=== PATIENT | male | born 1955 | race Caucasian/White ===

== ENCOUNTER 2021-12-31 18:04 | Outpatient (CLI) | payer OTHER, MEDICARE ==
--- NOTE | 2021-12-31 19:43 | XRAY Report ---
PROCEDURE: Chest 2 View X-Ray INDICATIONS: ACUTE COUGH TECHNIQUE: 2 views of the chest were acquired. COMPARISON: None. FINDINGS: Surgical changes and devices: None. Lungs and pleura: No pleural effusions or pneumothorax. Lungs are clear. Mediastinum: Mediastinal contours are normal. Heart size is normal. Bones and chest wall: No suspicious bony abnormalities. Soft tissues appear unremarkable. Air-fill ed loops of large bowel are seen in the upper abdomen. IMPRESSION: No acute cardiopulmonary abnormality. Reviewed by: Shaun Redmond MD on 12/31/2021 7:41 PM PST Approved by: Shaun Redmond MD on 12/31/2021 7:41 PM PST Station ID: [id number]
== END 2021-12-31 18:05 | disposition home or self-care (01) ==
LOC: DI.S 18:04
PROVIDERS: ATTEND Physician Assistant
DX: R05.1 Acute cough (principal)

== ENCOUNTER 2022-01-01 10:53 | Emergency (ER) | payer MEDICARE, OTHER ==
--- OUTSIDE RECORDS SUMMARY | 2022-01-01 11:23 | EXTERNAL MEDICAL SUMMARY RPT | Continuity of Care Document ---
:1955 Author Organization [place] Address [address] [id number] Phone Care Team Providers Name Role Phone Unavailable Unavailable Unavailable Shira Donahue, Bryan Unavailable Unavailable Giovani Donahue, Cherrie Unavailable Unavailable Allergies and Intolerances date description facility type (no date) IODINE [facility]unknown) Services Jhonny Encounters No information. Functional Status No information. Immunizations No information. Medications date description facility [id number]+0000 fluticasone propionate [facility] [place] [id number]+0000 fluticasone propionate [facility] [place] [phone]+0000 levothyroxine [facility] [place] [phone]+0000 levothyroxine [facility] [place] [phone]+0000 levothyroxine [facility] [place] [phone]+0000 levothyroxine [facility] [place] [phone]+0000 prednisone [facility] [place] [phone]+0000 prednisone [facility] [place] [phone]+0000 prednisone [facility] [place] [phone]+0000 amoxicillin-pot clavulanate [facility] [place] [phone]+0000 amoxicillin-pot clavulanate [facility] [place] [id number]+0000 cetirizine [facility] [place] [id number]+0000 cetirizine [facility] [place] [phone]+0000 cetirizine [facility] [place] [phone]+0000 cetirizine [facility] [place] [phone]+0000 levothyroxine [facility] [place] [id number]+0000 levothyroxine [facility] [place] [phone]+0000 levothyroxine [facility] [place] [phone]+0000 levothyroxine [facility] [place] [phone]+0000 prednisone [facility] [place] [phone]+0000 prednisone [facility] [place] [phone]+0000 prednisone [facility] [place] [id number]+0000 fluticasone propionate [facility] [place] [phone]+0000 fluticasone propionate [facility] [place] [phone]+0000 fluticasone propionate [facility] [place] [phone]+0000 fluticasone propionate [facility] [place] [phone]+0000 benzonatate [facility] [place] [phone]+0000 prednisone [facility] [place] [phone]+0000 prednisone [facility] [place] [phone]+0000 montelukast [facility] [place] [phone]+0000 montelukast [facility] [place] [phone]+0000 montelukast [facility] [place] [phone]+0000 montelukast [facility] [place] [phone]+0000 prednisone [facility] [place] [phone]+0000 prednisone [facility] [place] [phone]+0000 prednisone [facility] [place] [phone]+0000 cetirizine [facility] [place] [phone]+0000 cetirizine [facility] [place] [phone]+0000 cetirizine [facility] [place] [phone]+0000 cetirizine [facility] [place] [phone]+0000 benzonatate [facility] [place] [phone]+0000 levothyroxine [facility] [place] [phone]+0000 levothyroxine [facility] [place] [phone]+0000 levothyroxine [facility] [place] [phone]+0000 levothyroxine [facility] [place] [phone]+0000 prednisone [facility] [place] [phone]+0000 cetirizine [facility] [place] [phone]+0000 cetirizine [facility] [place] [phone]+0000 cetirizine [facility] [place] [phone]+0000 cetirizine [facility] [place] [phone]+0000 fluticasone propionate [facility] [place] [phone]+0000 fluticasone propionate [facility] [place] [phone]+0000 benzonatate [facility] [place] [phone]+0000 montelukast [facility] [place] [phone]+0000 montelukast [facility] [place] [phone]+0000 montelukast [facility] [place] [phone]+0000 montelukast [facility] [place] [phone]+0000 montelukast [facility] [place] [phone]+0000 montelukast [facility] [place] [phone]+0000 montelukast [facility] [place] [phone]+0000 montelukast [facility] [place] [phone]+0000 amoxicillin-pot clavulanate [facility] [place] [phone]+0000 cetirizine [facility] [place] [phone]+0000 cetirizine [facility] [place] [phone]+0000 cetirizine [facility] [place] [phone]+0000 cetirizine [facility] [place] [phone]+0000 montelukast [facility] [place] [phone]+0000 montelukast [facility] [place] [phone]+0000 montelukast [facility] [place] [phone]+0000 montelukast [facility] [place] [phone]+0000 benzonatate [facility] [place] [phone]+0000 amoxicillin-pot clavulanate [facility] [place] [phone]+0000 levothyroxine [facility] [place] [phone]+0000 levothyroxine [facility] [place] [phone]+0000 levothyroxine [facility] [place] [phone]+0000 levothyroxine [facility] Marilyn No information. Procedures date description facility [id number]+0000 Visit Code Hold [facility] [place] [phone]+0000 Visit Code Hold [facility] [place] [phone]+0000 Visit Code Hold [facility] [place] Results/Labs No information. Social History date description facility +0000 Never smoker [facility] [place] [phone]+0000 Never smoker [facility] [place] [phone]+0000 Never smoker [facility] [place] Vital Signs date measurement value units [id number]+0000 BMI BMI 25.82 kg/m2 [id number]+0000 BP_diastolic BP_diastolic 78 mmHg [id number]+0000 BP_systolic BP_systolic 141 mmHg [id number]+0000 heart_rate heart_rate 68 /min [id number]+0000 height_metric height_metric 185.42 cm [id number]+0000 height_standard height_standard 73 in [id number]+0000 respiration_rate respiration_rate 16 /min [id number]+0000 temperature_metric temperature_metric 36.5 C [id number]+0000 temperature_standard temperature_standard 9 7.7 F [id number]+0000 weight_metric weight_metric 88.45 kg [id number]+0000 weight_standard weight_standard 195 lb [id number]+0000 BMI BMI 25.82 kg/m2 [id number]+0000 BP_diastolic BP_diastolic 79 mmHg [id number]+0000 BP_systolic BP_systolic 135 mmHg [id number]+0000 heart_rate heart_rate 62 /min [id number]+0000 height_metric height_metric 185.42 cm [id number]+0000 height_standard height_standard 73 in [id number]+0000 respiration_rate respiration_rate 16 /min [id number]+0000 temperature_metric temperature_metric 36.11 C [id number]+0000 temperature_standard temperature_standard 9 7 F [id number]+0000 weight_metric weight_metric 88.45 kg [id number]+0000 weight_standard weight_standard 195 lb
[2022-01-01 12:45] LABS: BASOPHILS % (AUTO) 0.5 %; EOSINOPHILS % (AUTO) 0.1 %; HGB - HEMOGLOBIN 13.5 g/dL (14.0-18.0); LYMPHOCYTES # (AUTO) 0.6 10^3/uL (1.5-3.5); LYMPHOCYTES % (AUTO) 6.6 %; MEAN CORPUSCULAR HGB CONC 33.8 g/dL (32.0-36.0); MEAN PLATELET VOLUME 9.8 fL (7.4-11.4); MONOCYTES # (AUTO) 0.3 10^3/uL (0.0-1.0); MONOCYTES % (AUTO) 3.3 %; NEUTROPHILS # (AUTO) 7.9 10^3/uL (1.5-6.6); NEUTROPHILS % (AUTO) 89.2 %; PLT - PLATELET COUNT 289 10^3/uL (130-450); RED BLOOD COUNT 4.35 10^6/uL (4.70-6.10); RED CELL DISTRIBUTION WIDTH 12.9 % (12.0-15.0); WHITE BLOOD COUNT 8.8 x10^3/uL (4.8-10.8)
[2022-01-01 12:55] LABS: CALCIUM 9.5 mg/dL (8.5-10.3); CREATININE 0.9 mg/dL (0.6-1.2); POTASSIUM 4.4 mmol/L (3.5-5.0)
[2022-01-01] MEDS ORDERED: IPRATROPIUM/ALBUTEROL 3 ML NEB INH STA (14:04)
--- NOTE | 2022-01-01 14:17 | ED Physician Documentation ---
History of Present Illness - Stated complaint Stated Complaint: COUGH W BLOOD - Chief complaint Chief Complaint: Resp - History obtained from History obtained from: Patient - Additonal information Additional information: Patient comes emergency department chief complaint of cough for the last several weeks. He states that he thought maybe he had a cold but the cough is continued on. He had a single episode of some bloody sputum about 3 days ago and had a little pink discoloration of his sputum after that but nothing, bleeding randle, since. Patient denies shortness of breath. He states he has not had much sputum production at all. He denies fevers. He states that he has a history of some allergies and thought maybe his symptoms were just due to that but they have gone so long he was concerned, so he went to the walk-in clinic yesterday. They got a chest x-ray, which was completely negative, but they told him he should come here and get a CT of his chest, "just to be sure". The patient denies any easy bleeding or bruising anywhere else. He does not have any underlying respiratory issues or cardiac issues that he knows of. He is not anticoagulated. No unexpected weight loss. Review of Systems Unable to obtain: Unresponsive Ten Systems: 10 systems reviewed and negative Constitutional: reports: Reviewed and negative Eyes: reports: Reviewed and negative Ears: reports: Reviewed and negative Nose: reports: Reviewed and negative Throat: reports: Reviewed and negative Cardiac: reports: Reviewed and negative Respiratory: reports: Cough GI: reports: Reviewed and negative : reports: Reviewed and negative Skin: reports: Reviewed and negative Musculoskeletal: reports: Reviewed and negative Neurologic: reports: Reviewed and negative Psychiatric: reports: Reviewed and negative Endocrine: reports: Reviewed and negative Immunocompromised: reports: Reviewed and negative PD PAST MEDICAL HISTORY - Present Medications Home Medications: Ambulatory Orders Medication Instructions Recorded Confirmed Albuterol Sulf [Ventolin Hfa 1 - 2 puffs INH Q4HR PRN #1 ea 01/01/22 Inhaler] Benzonatate [Tessalon] 100 mg PO TID #30 cap 01/01/22 - Allergies Allergies/Adverse Reactions: Allergies Allergy/AdvReac Type Severity Reaction Status Date / Time iodine Allergy Hives Verified 01/01/22 11:10 PD ED PE NORMAL - Vitals Vital signs reviewed: Yes - General General: Alert and oriented X 3, No acute distress, Well developed/nourished - HEENT HEENT: Atraumatic, PERRL, EOMI, Moist mucous membranes - Neck Neck: Supple, no meningeal sign - Cardiac Cardiac: RRR, No murmur, Strong equal pulses - Respiratory Respiratory: No respiratory distress, Other (Bilateral expiratory wheezes and rhonchi, mild. Mildly congested sounding cough without sputum production or hemoptysis.) - Abdomen Abdomen: Soft, Non tender, Non distended - Derm Derm: Warm and dry - Extremities Extremities: No deformity - Neuro Neuro: Alert and oriented X 3 - Psych Psych: Normal mood, Normal affect Results - Vitals Vitals: Vital Signs - 24 hr 01/01/22 01/01/22 01/01/22 11:05 12:09 13:30 Temperature 36.4 C L Heart Rate 77 67 70 Respiratory 22 14 18 Rate Blood Pressure 133/72 H 129/73 137/74 H O2 Saturation 96 95 93 Oxygen O2 Source Room air - Labs Labs: Laboratory Tests 01/01/22 01/01/22 12:40 12:40 WBC 8.8 RBC 4.35 L Hgb 13.5 L Hct 40.0 L MCV 92.0 MCH 31.0 MCHC 33.8 RDW 12.9 Plt Count 289 MPV 9.8 Neut # (Auto) 7.9 H Lymph # (Auto) 0.6 L [place] # (Auto) 0.3 Eos # (Auto) 0.0 Baso # (Auto) 0.0 Absolute Nucleated RBC 0.00 Nucleated RBC % 0.0 Sodium 135 Potassium 4.4 Chloride 102 Carbon Dioxide 23 Anion Gap 10.0 BUN 14 Creatinine 0.9 Estimated GFR (MDRD) 84 L Glucose 141 H Calcium 9.5 PD MEDICAL DECISION MAKING - ED course Complexity details: reviewed old records ED course: I discussed with the patient that I have reviewed his x-ray from yesterday, and it was completely negative. The patient had 1 episode of hemoptysis 3 days ago and has had nothing since. Additionally, he is good oxygen saturation and other than some wheezing, and unremarkable lung exam. As such, I do not feel that a CT of the chest is indicated at this time. He has been treated with a DuoNeb here in the emergency department. Departure - Departure Disposition: 01 Home, Self Care Clinical Impression: Asthma Qualifiers: Asthma severity: mild Asthma persistence: intermittent Asthma complication t ype: with acute exacerbation Qualified Code(s): J45.21 - Mild intermittent asthma with (acute) exacerbation Cough Qualifiers: Cough type: subacute Qualified Code(s): R05.2 - Subacute cough Condition: Stable Instructions: ED Reactive Airway Disease, ED Cough Chronic Cause Unkn Prescriptions: Albuterol Sulf [Ventolin Hfa Inhaler] 1 - 2 puffs INH Q4HR PRN #1 ea PRN Reason: Shortness Of Air/Wheezing Benzonatate [Tessalon] 100 mg PO TID #30 cap Comments: Your chest x-ray from yesterday has been reviewed and is completely normal. Given that you have had the episode of bloody output with cough just once and that was a few days ago with no fresh blood since, there is no indication at this point that there is some underlying process going on. It is not uncommon after ongoing episodes of hard coughing to sometimes have rupture of a small surface vein or some "roughing up" of the mucous membranes that line the respiratory tract. This can cause some temporary bleeding, but if the bleeding resolves on its own, it does not necessarily require deeper investigation if the chest x-ray is negative. Additionally, your oxygen saturation is good and other than some wheezing, which is diffuse throughout your lungs, your lung sounds are actually good. For this reason, a CT scan is not indicated today. You have been treated with a nebulizer treatment here today. Please continue to use the inhaler at home and the cough medicine has been prescribed. Please follow-up with your primary doctor to further evaluate the ongoing cough.
[2022-01-01 15:43] VITALS: BP 136/78
== END 2022-01-01 15:42 | disposition home or self-care (01) ==
LOC: ED 10:53
DX: J45.21 Mild intermittent asthma with (acute) exacerbation (principal); R05.2 Subacute cough
CPT/HCPCS: 36415; 80048; 85025; 93005; 94640; 94664; 99283; 99284

== ENCOUNTER 2022-01-15 13:51 | Outpatient (CLI) | payer OTHER | END 2022-01-15 23:59 | disposition critical access hospital (66) | LOC: EMS 13:51 | DX: R06.02 Shortness of breath (principal); R06.2 Wheezing | CPT/HCPCS: A0425; A0427 ==

== ENCOUNTER 2022-01-15 14:15 | Emergency (ER) | payer OTHER ==
--- NOTE | 2022-01-15 14:29 | ED Physician Documentation ---
PD HPI DYSPNEA - Stated complaint Stated Complaint: SOA - History obtained from History obtained from: Patient - History of Present Illness Timing - onset: How many days ago (The patient has had cough and wheezing for the last 2 weeks. Has been on 2 courses of steroids and 1 course of antibiotics along with his inhaler/nebulizer. Improves for several days and then worse again.) Timing - duration: Weeks (2) Timing - details: Gradual onset, Waxing and waning (The patient states he has felt better after initiating prednisone and an inhaler but then has increased wheezing and exertional dyspnea again once done with the steroids. He has been on 2 courses so far and finish the last 1 a few days ago.) Inciting event(s): URI (He did have some cough congestion and some purulent sputum at the onset of these symptoms.) Improved by: Inhaler/neb (Inhaler was helping until the past 1-2 days.) Worsened by: Exertion, Coughing. No: Laying flat Associated symptoms: Cough, Wheezing. No: Fever Similar symptoms before: Diagnosis (asthma in the past with illnesses.) Recently seen: Clinic (Seen at the walk-in clinic twice. Prescribed prednisone 40 mg daily for 5 days as well as Tessalon and albuterol. He was prescribed Augmentin on the 31 December for 10-day course.) Review of Systems Constitutional: reports: Chills, Myalgias, Fatigue. denies: Fever Nose: reports: Congestion. denies: Rhinorrhea / runny nose Throat: denies: Sore throat Cardiac: denies: Chest pain / pressure Respiratory: reports: Dyspnea, Cough, Wheezing Skin: denies: Rash Musculoskeletal: denies: Neck pain, Back pain, Extremity swelling Neurologic: reports: Generalized weakness. denies: Near syncope, Altered mental status PD PAST MEDICAL HISTORY - Past Medical History Cardiovascular: None Respiratory: Asthma Neuro: None Endocrine/Autoimmune: None GI: None - Present Medications Home Medications: Ambulatory Orders Medication Instructions Recorded Confirmed Albuterol Sulf [Ventolin Hfa 1 - 2 puffs INH Q4HR PRN #1 ea 01/01/22 Inhaler] Benzonatate [Tessalon] 100 mg PO TID #30 cap 01/01/22 - Allergies Allergies/Adverse Reactions: Allergies Allergy/AdvReac Type Severity Reaction Status Date / Time iodine Allergy Hives Verified 01/01/22 11:10 - Living Situation Living Situation: reports: With spouse/s.o. Living Arrangement: reports: At home - Social History Does the pt smoke?: No PD ED PE NORMAL - Vitals Vital signs reviewed: Yes - General General: Alert and oriented X 3, Well developed/nourished, Other (Appears anxious and uncomfortable in a sitting up position with some sweating. Tachypnea with prolonged expiratory phase.) - HEENT HEENT: Ears normal, Moist mucous membranes, Pharynx benign - Neck Neck: Supple, no meningeal sign, No adenopathy - Cardiac Cardiac: RRR, No murmur - Respiratory Respiratory: No: Clear bilaterally (No coarse sounds. He does have significant diffuse expiratory wheezing. No retractions no abdominal muscle use.) - Abdomen Abdomen: Normal bowel sounds, Soft, Non tender - Derm Derm: Normal color. No: Warm and dry (sweating) - Extremities Extremities: Normal ROM s pain, No edema, No calf tenderness / cord - Neuro Neuro: Alert and oriented X 3, No motor deficit, Normal speech Results - Vitals Vitals: Vital Signs - 24 hr 01/15/22 01/15/22 01/15/22 14:31 15:29 15:59 Temperature 37.2 C Heart Rate 80 81 74 Respiratory 20 20 20 Rate Blood Pressure 157/81 H O2 Saturation 95 If not protocol : Oxygen Flow, liters/minute 01/15/22 01/15/22 01/15/22 16:37 16:51 17:00 Temperature Heart Rate 77 81 102 H Respiratory 24 18 22 Rate Blood Pressure 147/84 H 146/79 H O2 Saturation 94 87 L If not protocol : Oxygen Flow, liters/minute 01/15/22 01/15/22 17:10 17:48 Temperature Heart Rate 103 H 83 Respiratory 22 Rate Blood Pressure O2 Saturation 94 If not protocol 2 : Oxygen Flow, liters/minute Oxygen O2 Source Nasal cannula - Labs Labs: Laboratory Tests 01/15/22 01/15/22 01/15/22 15:13 15:14 15:14 WBC 10.6 RBC 4.79 Hgb 14.6 Hct 44.7 MCV 93.3 MCH 30.5 MCHC 32.7 RDW 13.2 Plt Count 343 MPV 9.7 Neut # (Auto) Not Reportable Lymph # (Auto) Not Reportable [place] # (Auto) Not Reportable Eos # (Auto) Not Reportable Baso # (Auto) Not Reportable Absolute Nucleated RBC Not Reportable Total Counted 100 Band Neuts % (Manual) 0 Reactive Lymphs % (Man) 2 Abnorm Lymph % (Manual) 0 Nucleated RBC % Not Reportable Neutrophils # (Manual) 7.2 H Lymphocytes # (Manual) 0.8 L Monocytes # (Manual) 0.5 Eosinophils # (Manual) 1.8 H Basophils # (Manual) 0.2 H Differential Comment MANUAL DIFFERENTIAL WBC Morphology NORMAL APPEARANCE Platelet Estimate NORMAL (130-450,000) Platelet Morphology NORMAL APPEARANCE RBC Morph Micro Appear NORMAL APPEARANCE Sodium 136 Potassium 4.3 Chloride 102 Carbon Dioxide 25 Anion Gap 9.0 BUN 11 Creatinine 0.9 Estimated GFR (MDRD) 84 L Glucose 121 H Calcium 9.7 Total Bilirubin 0.6 AST 26 ALT 25 Alkaline Phosphatase 49 Total Protein 8.1 Albumin 4.5 Globulin 3.6 Albumin/Globulin Ratio 1.3 Lipase 45 Nasal Adenovirus (PCR) NOT DETECTED Nasal B. parapertussis DNA (PCR) NOT DETECTED Nasal Coronavir 229E PCR NOT DETECTED Nasal Coronavir HKU1 PCR NOT DETECTED Nasal Coronavir NL63 PCR NOT DETECTED Nasal Coronavir OC43 PCR NOT DETECTED Nasal Enterovir/Rhinovir PCR NOT DETECTED Nasal Influenza B PCR NOT DETECTED Nasal Influenza A PCR NOT DETECTED Nasal Parainfluen 1 PCR NOT DETECTED Nasal Parainfluen 2 PCR NOT DETECTED Nasal Parainfluen 3 PCR NOT DETECTED Nasal Parainfluen 4 PCR NOT DETECTED Nasal RSV (PCR) NOT DETECTED Nasal B.pertussis DNA PCR NOT DETECTED Nasal C.pneumoniae (PCR) NOT DETECTED Bishop Human Metapneumo PCR NOT DETECTED Nasal M.pneumoniae (PCR) NOT DETECTED Nasal SARS-CoV-2 (PCR) NOT DETECTED - Rads (name of study) chest xray Radiology: Prelim report reviewed (Right perihilar and basilar opacities consistent with airspace disease), See rad report PD MEDICAL DECISION MAKING - ED course Complexity details: reviewed results (Negative viral respiratory panel. He has had symptoms long enough that he could have started with a viral and be done with that. Consideration for bacterial given chest x-ray mild infiltrates), re- evaluated patient (The patient still has considerable wheezing and also some anxiety related to it. Oxygenation is adequate on room air with resting but decreases to 87% just taking several steps to the bathroom. He then has increased work of breathing again.), considered differential, d/w patient ED course: The patient has persistent wheezing and dyspnea and work of breathing after several nebulizers and medications. He is hypoxic with minimal walking. Require supplemental oxygen. Chest x-ray showing some right-sided airway opacities consistent with early pneumonia. At this point I would consider the patient to be meeting criteria for hospitalization. We have no beds at end of the hospital available so the patient at this point will be maintained in the ER boarding. The decision to admit is at 1745. Departure - Departure Disposition: ED Place in Observation Clinical Impression: Exacerbation of asthma, Dyspnea, Pneumonia, Hypoxia Condition: Stable Record reviewed to determine appropriate education?: Yes
[2022-01-15] MEDS ORDERED: IPRATROPIUM/ALBUTEROL 3 ML NEB INH STA (15:02)
[2022-01-15] MEDS ORDERED: BENZONATATE 100 MG CAPSULE PO STA (15:03)
[2022-01-15] MEDS ORDERED: DEXAMETHASONE 10 MG/ML VIAL IVP STA (15:03)
[2022-01-15 15:21] LABS: BASOPHILS % (AUTO) 1.4 %; EOSINOPHILS % (AUTO) 10.7 %; HCT - HEMATOCRIT 44.7 % (42.0-52.0); HGB - HEMOGLOBIN 14.6 g/dL (14.0-18.0); LYMPHOCYTES % (AUTO) 8.3 %; MEAN CORPUSCULAR HEMOGLOBIN 30.5 pg (27.0-31.0); MEAN CORPUSCULAR HGB CONC 32.7 g/dL (32.0-36.0); MEAN CORPUSCULAR VOLUME 93.3 fL (80.0-94.0); MEAN PLATELET VOLUME 9.7 fL (7.4-11.4); MONOCYTES % (AUTO) 4.2 %; NEUTROPHILS % (AUTO) 75.1 %; PLT - PLATELET COUNT 343 10^3/uL (130-450); RED BLOOD COUNT 4.79 10^6/uL (4.70-6.10); RED CELL DISTRIBUTION WIDTH 13.2 % (12.0-15.0); WHITE BLOOD COUNT 10.6 x10^3/uL (4.8-10.8)
[2022-01-15 15:24] LABS: ABNORMAL LYMPHS % (MANUAL) 0 %; BAND NEUTROPHILS % (MANUAL) 0 %
[2022-01-15 15:35] LABS: ALBUMIN 4.5 g/dL (3.2-5.5); ALBUMIN/GLOBULIN RATIO 1.3 (1.0-2.2); BILIRUBIN,TOTAL 0.6 mg/dL (0.2-1.0); CALCIUM 9.7 mg/dL (8.5-10.3); CREATININE 0.9 mg/dL (0.6-1.2); POTASSIUM 4.3 mmol/L (3.5-5.0); TOTAL PROTEIN 8.1 g/dL (6.7-8.2)
--- NOTE | 2022-01-15 15:36 | XRAY Report ---
PROCEDURE: Chest 1 View X-Ray INDICATIONS: dyspnea/cough TECHNIQUE: One view of the chest was acquired. COMPARISON: 12/31/2021 FINDINGS: Surgical changes and devices: None. Lungs and pleura: Mild right perihilar and basilar opacity. No dense consolidation or pleural effusi on. Mediastinum: Normal heart size. Bones and chest wall: No suspicious bony lesions. Overlying soft tissues appear unremarkable. IMPRESSION: Mild right perihilar and basal opacity could represent early airspace disease and/or atelectasis. Con clinical analyst future imaging surveillance to assess for resolution. No pleural effusion. Reviewed by: Marshal Bailey MD on 01/15/2022 3:35 PM PST Approved by: Marshal Bailey MD on 01/15/2022 3:35 PM PST Station ID: [id number]
[2022-01-15 15:46] LABS: BASOPHILS # (MANUAL) 0.2 10^3/uL (0-0.1); BASOPHILS % (MANUAL) 2 %; EOSINOPHILS # (MANUAL) 1.8 10^3/uL (0-0.7); LYMPHOCYTES # (MANUAL) 0.8 10^3/uL (1.5-3.5); LYMPHOCYTES % (MANUAL) 6 %; MONOCYTES # (MANUAL) 0.5 10^3/uL (0.0-1.0); NEUTROPHILS # (MANUAL) 7.2 10^3/uL (1.5-6.6); PLATELET ESTIMATE, MANUAL NORMAL (130-450,000) (NORMAL); PLATELET MORPHOLOGY NORMAL APPEARANCE (NORMAL); RBC MORPHOLOGY (MULTIPLE) NORMAL APPEARANCE (NORMAL); REACTIVE LYMPHS % (MANUAL) 2 %; WBC MORPHOLOGY (MULTIPLE) NORMAL APPEARANCE (NORMAL)
[2022-01-15 15:47] LABS: DIFFERENTIAL COMMENT MANUAL DIFFERENTIAL
[2022-01-15] MEDS ORDERED: ALBUTEROL NEB 2.5 MG/3 ML INH STA (15:54)
[2022-01-15] MEDS ORDERED: MAGNESIUM SULFATE 2 GRAM 2 GM/50 ML BAG IV ONE ×2 (16:11→17:28)
[2022-01-15] MEDS ORDERED: LORazepam 2 MG/ML VIAL IVP STA (16:11)
[2022-01-15] MEDS ORDERED: LEVALBUTEROL 1.25 MG/3 ML NEB INH STA (16:12)
[2022-01-15] MEDS ORDERED: SODIUM CHLORIDE 0.9% 1,000 ML IV STA ×2 (16:12→18:06)
[2022-01-15] MEDS ORDERED: BUDESONIDE 0.5 MG/2 ML NEB INH STA (16:13)
[2022-01-15] MEDS ORDERED: LEVALBUTEROL 1.25 MG/3 ML NEB INH ONE (16:46)
[2022-01-15 16:50] LABS: B. PARAPERTUSSIS- RESP PCR PAN NOT DETECTED; B. PERTUSSIS- RESP PCR PANEL NOT DETECTED; C. PNEUMONIAE- RESP PCR PANEL NOT DETECTED; CORONAVIRUS 229E-RESP PCR NOT DETECTED; CORONAVIRUS HKU1-RESP PCR NOT DETECTED; CORONAVIRUS NL63-RESP PCR NOT DETECTED; CORONAVIRUS OC43-RESP PCR NOT DETECTED; HUMAN METAPNEUMOVIRUS NOT DETECTED; INFLUENZA A- RESP PCR PANEL NOT DETECTED; INFLUENZA B - RESP PCR PANEL NOT DETECTED; M. PNEUMONIAE- RESP PCR PANEL NOT DETECTED; PARAINFLUENZA VIRUS 1 NOT DETECTED; PARAINFLUENZA VIRUS 2 NOT DETECTED; PARAINFLUENZA VIRUS 3 NOT DETECTED; PARAINFLUENZA VIRUS 4 NOT DETECTED; RHINOVIRUS/ENTEROVIRUS NOT DETECTED; RSV- RESP PCR PANEL NOT DETECTED; SARS-CoV-2 -RESP PCR PANEL NOT DETECTED
[2022-01-15] MEDS ORDERED: MAG HYDROX/AL HYDROX/SIMETH 30 ML UDC PO STA (17:26)
[2022-01-15] MEDS: LEVALBUTEROL 1.25 MG/3 ML NEB INH SCH ×3 (17:47→22:19)
[2022-01-15] MEDS ORDERED: DOXYCYCLINE 100 MG TABLET PO STA (17:52)
[2022-01-15] MEDS ORDERED: cefTRIAXone 1 GM VIAL IVP STA (18:02)
[2022-01-15] MEDS: DOXYCYCLINE 100 MG TABLET PO SCH (20:46)
[2022-01-15] MEDS ORDERED: diphenhydrAMINE 25 MG CAPSULE PO STA (23:20)
[2022-01-16] MEDS ORDERED: LEVALBUTEROL 1.25 MG/3 ML NEB INH STA (08:57)
[2022-01-16] MEDS: cefTRIAXone 1 GM VIAL IVP SCH (09:09)
[2022-01-16] MEDS: DEXAMETHASONE 10 MG/ML VIAL IVP SCH (09:09)
[2022-01-16] MEDS: DOXYCYCLINE 100 MG TABLET PO SCH ×2 (09:09→20:32)
[2022-01-16] MEDS: IPRATROPIUM/ALBUTEROL 3 ML NEB INH SCH ×2 (14:40→18:00)
[2022-01-16] MEDS: methylPREDNISolone SUCCINATE 125 MG/2 ML VIAL IVP SCH ×2 (14:41→20:32)
[2022-01-16] MEDS: guaiFENesin 600 MG TABLET PO SCH (18:23)
[2022-01-16] MEDS: ALBUTEROL NEB 2.5 MG/3 ML INH PRN (22:15)
[2022-01-17] MEDS: IPRATROPIUM/ALBUTEROL 3 ML NEB INH SCH ×4 (02:38→19:00)
[2022-01-17] MEDS: methylPREDNISolone SUCCINATE 125 MG/2 ML VIAL IVP SCH ×4 (02:38→20:35)
--- NOTE | 2022-01-17 09:06 | ED Physician Documentation ---
ED Addendum - Addendum Addendum: 01/17/22 09:02 66-year-old male in the emergency department awaiting a bed for exacerbation of COPD and pneumonia has improvement today after coughing up a thick mucous plug. He reports that he has had enough coughing over the past several weeks that he has pulled muscles in his abdomen he has an umbilical hernia that was not present previously and he feels fatigued. We are still awaiting a bed for this patient and we will be certain to ambulate him in the halls today. He is currently on ceftriaxone and doxycycline as well as methylprednisolone dexamethasone and Xopenex. 01/17/22 09:05
[2022-01-17] MEDS: cefTRIAXone 1 GM VIAL IVP SCH (09:14)
[2022-01-17] MEDS: DOXYCYCLINE 100 MG TABLET PO SCH ×2 (09:14→20:35)
[2022-01-17] MEDS: DEXAMETHASONE 10 MG/ML VIAL IVP SCH (09:14)
[2022-01-17] MEDS: guaiFENesin 600 MG TABLET PO SCH ×2 (09:14→20:35)
[2022-01-17] MEDS: ALBUTEROL NEB 2.5 MG/3 ML INH PRN (11:58)
[2022-01-17] MEDS ORDERED: MIRTAZAPINE 15 MG TABLET PO SCH (22:56)
[2022-01-18] MEDS: IPRATROPIUM/ALBUTEROL 3 ML NEB INH SCH ×2 (02:49→09:50)
[2022-01-18] MEDS: methylPREDNISolone SUCCINATE 125 MG/2 ML VIAL IVP SCH ×2 (02:50→09:48)
[2022-01-18] MEDS: DEXAMETHASONE 10 MG/ML VIAL IVP SCH (09:48)
[2022-01-18] MEDS: cefTRIAXone 1 GM VIAL IVP SCH (09:48)
[2022-01-18] MEDS: DOXYCYCLINE 100 MG TABLET PO SCH (09:48)
[2022-01-18] MEDS: guaiFENesin 600 MG TABLET PO SCH (10:04)
--- NOTE | 2022-01-18 13:01 | CT Report ---
PROCEDURE: CHEST WO INDICATIONS: PNEUMONIA/HYPOXIA TECHNIQUE: Noncontrast 1mm axial images were acquired from the pulmonary apices to the posterior costophrenic an gles. Axial 5 mm soft tissue kernel reconstructions were performed as well as 8 mm axial MIP and cor onal and sagittal 5 mm reformations. For radiation dose reduction, the following was used: automate d exposure control, adjustment of mA and/or kV according to patient size. COMPARISON: 01/15/2022 plain film FINDINGS: Image quality: Excellent. Lungs and pleura: There is mild patchy bilateral mid and lower lung pulmonary opacity dependently. 3 mm subpleural nodule within the left upper lobe posteriorly. No pleural effusions or pneumothorax. C entral and peripheral airways are patent and normal in caliber. Mediastinum: Heart size is normal. No pericardial effusion. No mediastinal adenopathy by size crit eria. Thoracic aorta and central pulmonary arteries are normal in size. Esophagus is normal in lucinda titi. No hiatal hernia. Bones and chest wall: No suspicious bony lesions. No vertebral body compression fractures. No axil marine or supraclavicular adenopathy by size criteria. The thyroid is normal in size and there are no incidental findings. Abdomen: Visualized upper abdominal solid organs and bowel loops appear normal in the absence of con trast. IMPRESSION: 1. Bilateral mid and lower lung pneumonia. 2. Left lung nodule. Follow-up is recommended as below. Solid nodules Solitary nodule size: <6 mm *low risk patients: no follow-up needed *high risk patients: optional CT at 12 months Reviewed by: Gilles Rose MD on 01/18/2022 12:00 PM [facility] Approved by: Gilles Rose MD on 01/18/2022 12:00 PM [facility] Station ID: [id number]
--- NOTE | 2022-01-18 13:10 | ED Physician Documentation ---
ED Addendum - Addendum Addendum: 01/18/22 13:08 Mr. Sánchez is examined again today he has further improvement he has less wheezing in his lungs today and his oxygen saturation is 93 to 94% at rest dropped to 91 to 92% with ambulation. He feels that he is ready to go home and his makes a request for CT scanning of the chest. This is the third course of steroid the patient has taken in the past 2 months and I acquiesced to the request. This did show some minimal residual pneumonia and a 3 mm nodule in the left lung and the recommendation was for a follow-up scan in 12 months. The patient has been slated for admission to the hospital and a bed did not become available while he was in the emergency department and the patient improved with treatment and does not require hospitalization now. I have written scripts for the patient Xopenex, doxycycline and prednisone and he has a follow-up doctor at the [facility].
[2022-01-18 13:30] VITALS: BP 120/65
== END 2022-01-18 13:29 | disposition home or self-care (01) ==
LOC: EDUNIT# → ED 14:15
DX: J44.1 Chronic obstructive pulmonary disease with (acute) exacerbation (principal); J18.9 Pneumonia, unspecified organism; Z20.822 Contact with and (suspected) exposure to COVID-19
CPT/HCPCS: 36415; 71045; 71250; 80053; 83690; 85025; 87633; 94640; 94761; 96365; 96366; 96375; 96376; 99284; 99285; A9270; J2060; J7626

== ENCOUNTER 2023-06-07 12:40 | Emergency (ER) | payer OTHER ==
--- NOTE | 2023-06-07 12:59 | ED Physician Documentation ---
History of Present Illness - Stated complaint Stated Complaint: BODY CRAMPS/ACHE - Chief complaint Chief Complaint: General - History obtained from History obtained from: Patient, Family - Additonal information Additional information: 68-year-old gentleman with history of asthma has had a productive cough lately and yesterday finished up a 5-day course of prednisone attic dose of 60 mg/day. Starting today he is developed severe right flank pain radiating to the right upper quadrant or vice versa. He is not sure. It does not worsen with deep breathing or eating. He is not short of breath with it. He states that he has had similar very milder episodes during the cessation of prednisone in the past, but this is somewhat different and much more severe. He is not short of breath at this point. He still has a cough and vacillates as to whether it is improving or worsening or just Staying the same. PD PAST MEDICAL HISTORY - Past Medical History Past Medical History: Yes Cardiovascular: None Respiratory: Asthma Neuro: None Endocrine/Autoimmune: None GI: None Psych: Depression - Past Surgical History Past Surgical History: Yes Ortho: Knee replacement Derm: Other - Present Medications Home Medications: Ambulatory Orders Medication Instructions Recorded Confirmed Acetaminophen [Tylenol] 500 mg PO Q6HR PRN 01/17/22 01/17/22 Cetirizine [ZyrTEC] 10 mg PO DAILY 01/17/22 01/17/22 Diclofenac Sodium 1% Gel [Voltaren 4 g TOP DAILY 01/17/22 01/17/22 Gel] Levothyroxine Sodium 88 mcg PO QDAC 01/17/22 01/17/22 [Levothyroxine] Mirtazapine 7.5 mg PO HS 01/17/22 01/17/22 Montelukast [Singulair] 10 mg PO DAILY 01/17/22 01/17/22 Doxycycline [Vibramycin] 100 mg PO BID #20 tablet 01/18/22 Levalbuterol [Xopenex] 1.25 mg INH RTQ4H PRN #100 ml 01/18/22 predniSONE [Deltasone] 10 mg PO [id number] #42 tab 01/18/22 Cyclobenzaprine [Flexeril] 10 mg PO TID PRN #20 tablet 06/07/23 Lidocaine Patch 5% [Lidoderm Patch] 1 patch TOP DAILY PRN #10 patch 06/07/23 Ondansetron Odt [Zofran] 4 mg TL Q6H PRN #10 tablet 06/07/23 Oxycodone HCl/Acetaminophen 1 - 2 each PO Q6H PRN #14 tablet 06/07/23 [Percocet 5-325 mg Tablet] predniSONE [Deltasone] See Rx Instructions .ROUTE 06/07/23 .COMPLEX #14 tablet - Allergies Allergies/Adverse Reactions: Allergies Allergy/AdvReac Type Severity Reaction Status Date / Time iodine Allergy Hives Verified 06/07/23 12:46 - Social History Does the pt smoke?: No Smoking Status: Never smoker Does the pt drink ETOH?: Yes Does the pt have substance abuse?: Yes - Immunizations Immunizations are current?: No Immunizations: Other immun not current - POLST Patient has POLST: No PD ED PE NORMAL - Vitals Vital signs reviewed: Yes - General General: Alert and oriented X 3, Other (He appears uncomfortable and is clutching the right flank) - HEENT HEENT: PERRL, EOMI - Neck Neck: Supple, no meningeal sign, No bony TTP - Cardiac Cardiac: RRR, No murmur - Respiratory Respiratory: No respiratory distress, Clear bilaterally - Abdomen Abdomen: Other (There is no shingles rash in the area of pain, he has mild tenderness in the right upper quadrant, clear lungs, I am unable to reproduce the pain with palpation of the abdomen or chest.) - Extremities Extremities: No edema, No calf tenderness / cord - Neuro Neuro: Alert and oriented X 3 Results - Vitals Vitals: Vital Signs - 24 hr 06/07/23 06/07/23 12:46 15:27 Temperature 36.8 C Heart Rate 60 48 L Respiratory 16 16 Rate Blood Pressure 142/91 H 133/97 H O2 Saturation 100 96 Oxygen O2 Source Room air - EKG (time done) 1320 EKG releavant findings:: EKG personally interpreted by author of this note. Relevant findings are: Rate: Rate (enter#) (45) Rhythm: Sinus bradycardia [place]: Normal Intervals: Normal CO QRS: Normal Ischemia: Normal ST segments - Labs Labs: Laboratory Tests 06/07/23 06/07/23 06/07/23 12:57 13:02 13:02 WBC 12.1 H RBC 4.10 L Hgb 12.8 L Hct 38.7 L MCV 94.4 H MCH 31.2 H MCHC 33.1 RDW 13.2 Plt Count 315 MPV 9.9 Neut # (Auto) 6.7 H Lymph # (Auto) 3.4 [place] # (Auto) 1.7 H Eos # (Auto) 0.2 Baso # (Auto) 0.1 Absolute Nucleated RBC 0.00 Nucleated RBC % 0.0 PT 10.7 INR 1.0 Sodium Potassium Chloride Carbon Dioxide Anion Gap BUN Creatinine Estimated GFR (MDRD) Glucose Calcium Total Bilirubin AST ALT Alkaline Phosphatase Total Protein Albumin Globulin Albumin/Globulin Ratio Lipase Urine Color YELLOW Urine Clarity CLEAR Urine pH 7.0 Ur Specific [place] 1.020 Urine Protein NEGATIVE Urine Glucose (UA) NEGATIVE Urine Ketones TRACE Urine Occult Blood NEGATIVE Urine Nitrite NEGATIVE Urine Bilirubin NEGATIVE Urine Urobilinogen 0.2 (NORMAL) Ur Leukocyte Esterase NEGATIVE Ur Microscopic Review NOT INDICATED Urine Culture Comments NOT INDICATED 06/07/23 13:02 WBC RBC Hgb Hct MCV MCH MCHC RDW Plt Count MPV Neut # (Auto) Lymph # (Auto) [place] # (Auto) Eos # (Auto) Baso # (Auto) Absolute Nucleated RBC Nucleated RBC % PT INR Sodium 136 Potassium 3.6 Chloride 99 L Carbon Dioxide 29 Anion Gap 8.0 BUN 19 Creatinine 1.0 Estimated GFR (MDRD) 74 L Glucose 104 Calcium 9.5 Total Bilirubin 0.3 AST 24 ALT 43 Alkaline Phosphatase 41 L Total Protein 7.4 Albumin 4.4 Globulin 3.0 Albumin/Globulin Ratio 1.5 Lipase 57 Urine Color Urine Clarity Urine pH Ur Specific [place] Urine Protein Urine Glucose (UA) Urine Ketones Urine Occult Blood Urine Nitrite Urine Bilirubin Urine Urobilinogen Ur Leukocyte Esterase Ur Microscopic Review Urine Culture Comments - Rads (name of study) CT angiography of the chest was negative Relevant Findings:: Final report received, EMP independent interpretation of test CTA Abd was negative Relevant Findings:: Final report received, EMP independent interpretation of test PD Medical Decision Making - ED course ED course: 68-year-old gentleman presents with severe right flank pain with recent cough and steroid use. He says he has had pain similar in the past when suddenly ceasing steroids but this is worse. He is also been coughing a lot and working in the yard heavily yesterday which is when it got really bad. No shingles rash on exam. Differential would include dissection, or other vascular emergency, gallbladder, kidney, or lung issues such as pneumothorax or pneumonia. Extensive testing was done including lab work and CT angiography of the chest and abdomen which were negative for acute findings except for mild leukocytosis likely related to recent steroid use. Urinalysis and chemistry panels were normal. He was treated with divided doses of pain medications here and on reexamination he was appearing much more comfortable but did wince if he turned his torso to the left again suggestive of musculoskeletal etiology. Departure - Departure Disposition: 01 Home, Self Care Clinical Impression: Flank pain Condition: Good Record reviewed to determine appropriate education?: Yes Instructions: ED Acute Pain [facility] Prescriptions: predniSONE [Deltasone] See Rx Instructions .ROUTE .COMPLEX #14 tablet Cyclobenzaprine [Flexeril] 10 mg PO TID PRN #20 tablet PRN Reason: Spasms Lidocaine Patch 5% [Lidoderm Patch] 1 patch TOP DAILY PRN #10 patch PRN Reason: pain Oxycodone HCl/Acetaminophen [Percocet 5-325 mg Tablet] 1 - 2 each PO Q6H PRN #14 tablet PRN Reason: pain Ondansetron Odt [Zofran] 4 mg TL Q6H PRN #10 tablet PRN Reason: Nausea / Vomiting Comments: As discussed, thankfully extensive diagnostic testing including CT angiography of the chest and abdomen, lab work and urinalysis were normal/negative. At this point I think your pain is a combination of a torn intercostal muscle on the right from coughing and yard work yesterday and potentially the steroid withdrawal since you have had strange aches and pains in the past with the cessation of steroids. I sent your prescriptions electronically to the [facility] in [place]. As discussed we are doing a steroid taper, you had a dose today, so start this tomorrow and also prescribing nausea medicine, lidocaine patches, a muscle relaxer and painkillers. Call your doctor to arrange a follow-up appointment, make the next available appointment. In the interim, return anytime if worse or if new symptoms develop. I am prescribing a short course of narcotic pain medication for you. These are potentially dangerous and addictive medications that should be used carefully. These medications may constipate you. Take an qiay-vhd-ajfklig stool softener (docusate) twice daily with plenty of water while taking these medications. If you go 24 hours without a bowel movement, take dybi-pyb-yvewxud miralax, per package instructions. Do not drink or drive while taking these medications. If you received narcotic or sedating medications while in the emergency department, do not drive for 24 hours. Store this medication in a safe, secure place and out of reach of children. It is a violation of federal law to give or sell this medication to another person or to use in a manner other than prescribed. The ED will not refill narcotic prescriptions, including prescriptions lost or stolen. To dispose of unwanted medications: 1. [facility] provides a drop box for medication in pill form only (no liquids) 8:00 am to 4:30 p.m. Thursday-Thursday in the lobby of the [facility], [address] [place] [address]. Empty pills into ziplock bag before disposal. Call [phone] for information. 2.[employer] is a free service available to all [facility] residents. Go to [email or web address] Note that many narcotic pain relievers also contain Tylenol/acetaminophen. Please ensure that your total dose of acetaminophen from all sources does not exceed 3 g (3000 mg) per day. Forms: PCP List
[2023-06-07 13:11] LABS: BASOPHILS # (AUTO) 0.1 10^3/uL (0.0-0.1); BASOPHILS % (AUTO) 0.4 %; EOSINOPHILS # (AUTO) 0.2 10^3/uL (0.0-0.7); EOSINOPHILS % (AUTO) 1.5 %; HCT - HEMATOCRIT 38.7 % (42.0-52.0); HGB - HEMOGLOBIN 12.8 g/dL (14.0-18.0); LYMPHOCYTES # (AUTO) 3.4 10^3/uL (1.5-3.5); LYMPHOCYTES % (AUTO) 28.4 %; MEAN CORPUSCULAR HEMOGLOBIN 31.2 pg (27.0-31.0); MEAN CORPUSCULAR HGB CONC 33.1 g/dL (32.0-36.0); MEAN CORPUSCULAR VOLUME 94.4 fL (80.0-94.0); MEAN PLATELET VOLUME 9.9 fL (7.4-11.4); MONOCYTES # (AUTO) 1.7 10^3/uL (0.0-1.0); MONOCYTES % (AUTO) 13.7 %; NEUTROPHILS # (AUTO) 6.7 10^3/uL (1.5-6.6); NEUTROPHILS % (AUTO) 55.7 %; PLT - PLATELET COUNT 315 10^3/uL (130-450); RED CELL DISTRIBUTION WIDTH 13.2 % (12.0-15.0); WHITE BLOOD COUNT 12.1 x10^3/uL (4.8-10.8)
[2023-06-07] MEDS: methylPREDNISolone SUCCINATE 40 MG/ML VIAL IVP STA (13:13)
[2023-06-07] MEDS: HYDROmorphone 1 MG/ML CARPUJECT IVP STA ×3 (13:14→15:29)
[2023-06-07 13:22] LABS: PT - PROTHROMBIN TIME 10.7 secs (9.9-12.6)
[2023-06-07 13:25] LABS: ALBUMIN 4.4 g/dL (3.2-5.5); ALBUMIN/GLOBULIN RATIO 1.5 (1.0-2.2); BILIRUBIN,TOTAL 0.3 mg/dL (0.2-1.0); CALCIUM 9.5 mg/dL (8.5-10.3); POTASSIUM 3.6 mmol/L (3.5-4.5); TOTAL PROTEIN 7.4 g/dL (6.4-8.9)
[2023-06-07] MEDS ORDERED: iohexoL-300 100 ML VIAL ONE (13:43)
--- NOTE | 2023-06-07 14:46 | CT Report ---
PROCEDURE: Angio Chest INDICATIONS: R chest/abd pain, ao protocol CONTRAST: 100ml omni 300 TECHNIQUE: After the administration of intravenous contrast, 2 mm axial images were acquired from the pulmonary apices to the posterior costophrenic angles during the arterial phase. In addition, 1 mm lung kernel and 5 mm soft tissue kernel reconstructions were performed. 3-dimensional coronal oblique maximum int ensity projection (MIP) reformats, 8 mm axial MIP, and 5 mm coronal and sagittal MPR reformats were t hen performed through the thorax. For radiation dose reduction, the following was used: automated exp osure control, adjustment of mA and/or kV according to patient size. COMPARISON: None. FINDINGS: Image quality: Excellent. Large vessels: No filling defects within the opacified pulmonary arteries, accounting for motion and contrast timing. No evidence of acute aortic syndrome or aortic aneurysm. Lungs and pleura: No consolidation. No pleural effusions. No pneumothorax. No suspicious pulmonary n odules which require follow up. Mediastinum: Heart size is normal. No pericardial effusion. No large vessel abnormality. No mediastin al adenopathy by size criteria. Chest wall and lower neck: Thyroid is unremarkable. No axillary or supraclavicular adenopathy by size . Bones: No aggressive osseous abnormality. Upper Abdomen: Unremarkable. IMPRESSION: No pulmonary embolus. No acute aortic syndrome. Reviewed by: Galen Calle MD on 06/07/2023 2:44 PM PDT Approved by: Galen Calle MD on 06/07/2023 2:44 PM PDT Station ID: [id number]
--- NOTE | 2023-06-07 14:48 | CT Report ---
PROCEDURE: Angio Abdomen/Pelvis INDICATIONS: R chest/abd pain, ao protocol CONTRAST: 100ml omni 300 TECHNIQUE: After the administration of intravenous contrast, 2.5 mm thick sections acquired from the diaphragm t o the symphysis. 10 mm maximum-intensity projection (MIP) reformats were then acquired. For radiati on dose reduction, the following was used: automated exposure control, adjustment of mA and/or kV ac cording to patient size. COMPARISON: None. FINDINGS: Image quality: Excellent. Aorta: Patent. No significant vascular calcifications. No aneurysm. Mesenteric arteries: Celiac trunk, superior and inferior mesenteric arteries appear patent. Right pelvic arteries: Patent without hemodynamically significant stenosis. Left pelvic arteries: Patent without hemodynamically significant stenosis. Extravascular soft tissues: Lung bases are clear. Heart size is normal. Liver and spleen are becca l in size and enhancement. Gallbladder is unremarkable. Biliary system is non dilated. Pancreas en hances normally. No adrenal nodules. Kidneys are normal in size and enhancement, without hydronephr osis. Non opacified bowel loops are normal in wall thickness and caliber. No free fluid or air. No retroperitoneal or mesenteric adenopathy. No ventral hernias. No suspicious bony lesions. No vert ebral body compression fractures. IMPRESSION: No acute aortic syndrome or aortic aneurysm. Normal gallbladder. No CT evidence of pancreatitis. Reviewed by: Galen Calle MD on 06/07/2023 2:47 PM PDT Approved by: Galen Calle MD on 06/07/2023 2:47 PM PDT Station ID: [id number]
[2023-06-07] MEDS: KETOROLAC 15 MG/ML VIAL IVP STA (14:54)
[2023-06-07 15:01] LABS: BILIRUBIN,URINE NEGATIVE (NEGATIVE); GLUCOSE, URINE (UA) NEGATIVE (NEGATIVE); KETONES,URINE (UA) TRACE mg/dL (NEGATIVE); LEUKOCYTE ESTERASE, URINE NEGATIVE (NEGATIVE); NITRITE,URINE NEGATIVE (NEGATIVE); OCCULT BLOOD,URINE NEGATIVE (NEGATIVE); PROTEIN,URINE NEGATIVE (NEGATIVE); UROBILINOGEN,URINE 0.2 (NORMAL) E.U./dL (NORMAL)
[2023-06-07 15:02] LABS: CLARITY,URINE CLEAR (CLEAR)
[2023-06-07] MEDS: iohexoL-300 100 ML VIAL IVP ONE (15:24)
[2023-06-07] MEDS: LIDOCAINE PATCH 5% TOP STA (15:29)
[2023-06-07 15:59] VITALS: BP 135/94; O2SAT 98
== END 2023-06-07 15:54 | disposition home or self-care (01) ==
LOC: ED 12:40
DX: R10.10 Upper abdominal pain, unspecified (principal)
CPT/HCPCS: 36415; 71275; 74174; 80053; 81003; 83690; 85025; 85610; 93005; 96374; 96375; 96376; 99284; 99285; A9270; J1170; Q9967; 81001; 87086